=== PATIENT | female | born 1990 | race Caucasian/White ===

== ENCOUNTER 2021-09-12 10:52 | Emergency (ER) | payer SELFPAY ==
--- OUTSIDE RECORDS SUMMARY | 2021-09-12 10:55 | XMS REPORT | Continuity of Care Document ---
:1990 Author Organization [facility] t Address 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 2-05 ity of constip[place] [facility] Maternal Maternal Disease Active Unive rs varicella, varicella, 1-14 it y of non-immune non-immune 00:[place] [facility] Glucose Glucose Disease Active Univers tolerance tolerance 1-14 ity of test test 00:00: [place] abnormal abnormal Medica l Branch High risk High risk Disease Active Uni vers , , 1-08 it y of antepartum antepartum [place] [facility] Thyroid Thyroid Disease Active Univers disease disease 1-08 ity of during during 00:00: [place] , , 00 Me dical unspecifie unspecifie Br anch d d trimester trimester Nausea and Nausea and Disease Active U nivers vomiting vomiting 1-08 ity of during during 00:00: [place] 00 Medi fahad prior to prior to Branch 22 weeks 22 weeks gestation gestation Allergies, Adverse Reactions, Alerts Allergy Allergy Status Severity Reaction(s) Onset Inactive Treating Comm ents Source Name Type Date Date Clinician Adhesive Propensi Active Rash Univer s Tape ty to 10-22 ity of adverse 00:00: [place] reaction 00 Medical s Branch ADHESIVE DRUG Active Hives Univers TAPE 10-22 ity of 00:00: [place] 00 Medical Branch Social History Social Habit Start Date Stop Date Quantity Comments Source History of Cigarette Smoker Universi ty of tobacco use [facility] Exposure to Not sure University of SARS-CoV-2 [facility] (event) [place] Alcohol intake 2021-02-12 2021-02-12 0 /d University of 00:00:00 00:00:00 [facility] Tobacco use and 2015-04-29 2015-04-29 Never used Universit y of exposure 00:00:00 00:00:00 [facility] Tobacco Comment 2015-04-29 2015-04-29 pt states she Univer sity of 00:00:00 00:00:00 smokes 4-5 [facility] cig/day [place] Sex [birth year] Universit y of 00:00:00 00:00:00 [facility] Smoking Status Start Date Stop Date Source Current every day smoker 2015-04-29 00:00:00 Uni versity of [facility] Medications Ordered Filled Start Stop Current Ordering Indication Dosage Frequency Signature Comments Components Source Medication Medication Date Date Medication? Clinician (SIG) Name Name LORazepam 2020-04 No 1mg 1 mg, Univer s (ATIVAN) 0-25 -24 Oral, ity of tablet 1 mg 00:30: 23:30 ONCE, 1 [place] [facility] 02/12/21 at 1930, PIPER ketorolac 2020-04 No 30mg 30 mg, Unive rs (TORADOL) 0-25 10-24 Intramuscu ity of injection 00:30: 23:30 lar, ONCE, [place] 30 mg 00 :00 1 dose, On [facility] 02/12/21 at 1930, PIPER
Fa culty member approving Restricted medication : MIRNA WARE chlorhexidi 2020-04 Yes [id number] 15mL Swish and Univers ne 0.12 % 0-24 spit out ity of mouthwash 00:00: 15 mL 2 [place] 00 (two) Medical times Branch daily. methylPREDN 2020-04 Yes [id number] Take by Univers ISolone 0-24 mouth ity of (MEDROL, 00:00: SEE-INSTRU [place] as GILDARDO,) 4 mg 00 CTIONS. Medica l tablets follow Branch package directions acetaminoph 2020-04 Yes [id number] 1{tbl} Take 1 Un gonzalez en-codeine 0-24 tablet by ity of (TYLENOL-CO 00:00: mouth [place] DEINE #3) 00 every 4 Medical 300-30 mg (four) Branch tablet hours as needed for Pain (scale 7-10). Indication s: acute pain ondansetron 2020-04 Yes [id number] 4mg Take 1 Univers 4 mg 0-24 tablet by ity of disintegrat 00:00: mouth [place] ing tablet 00 every 8 Medica l (eight) Branch hours as needed for Nausea and Vomiting (N/V). chlorhexidi 2020-04 Yes [id number] 15mL Swish and Univers ne 0.12 % 0-24 spit out ity of mouthwash 00:00: 15 mL 2 [place] 00 (two) Medical times Branch daily. methylPREDN 2020-04 Yes [id number] Take by Univers ISolone 0-24 mouth ity of (MEDROL, 00:00: SEE-INSTRU [place] as GILDARDO,) 4 mg 00 CTIONS. Medica l tablets follow Branch package directions acetaminoph 2020-04 Yes [id number] 1{tbl} Take 1 Un gonzalez en-codeine 0-24 tablet by ity of (TYLENOL-CO 00:00: mouth [place] DEINE #3) 00 every 4 Medical 300-30 mg (four) Branch tablet hours as needed for Pain (scale 7-10). Indication s: acute pain ondansetron 2020-04 Yes [id number] 4mg Take 1 Univers 4 mg 0-24 tablet by ity of disintegrat 00:00: mouth [place] ing tablet 00 every 8 Medica l (eight) Branch hours as needed for Nausea and Vomiting (N/V). amoxicillin 2020-04 Yes [id number] 500mg Take 1 Univers 500 mg 0-24 capsule by ity of capsule 00:00: mouth 3 [place] 00 (three) Medical times Branch daily. ibuprofen 2020-04 Yes [id number] 800mg Take 1 U nivers 800 mg 0-24 tablet by ity of tablet 00:00: mouth [place] 00 every 8 Medical (eight) Branch hours as needed for Pain (scale 4-6). clindamycin 2020-04- No [id number] 300mg Take 2 Univers 150 mg 0-24 02-20 capsules ity of capsule 00:00: 04:59 by mouth 4 [place] as 00 :00 (four) Medical times Branch daily for 7 days. clindamycin 2020-04 No [id number] 300mg Take 2 Univers 150 mg 0-24 02-20 capsules ity of capsule 00:00: 04:59 by mouth 4 [place] as 00 :00 (four) Medical times Branch daily for 7 days. ciprofloxac Yes [id number] 250mg Take 1 Univers in HCl 250 4-23 tablet by ity of mg tablet 00:00: mouth 2 (two) Medical times Branch daily. ciprofloxac Yes [id number] 250mg Take 1 Univers in HCl 250 4-23 tablet by ity of mg tablet 00:00: mouth 2 (two) Medical times Branch daily. amoxicillin 2015-04 Yes 500mg Take 1 Uni vers 500 mg 2-23 tablet by ity of tablet 00:00: mouth 2 (two) Medical times Branch daily. amoxicillin 2015-04 Yes 500mg Take 1 Uni vers 500 mg 2-23 tablet by ity of tablet 00:00: mouth 2 (two) Medical times Branch daily. Immunizations Ordered Filled Immunization Date Status Comments [facility] e Immunization Name Name Rubella 2007-11-12 Completed University of 00:00:00 [facility] Rubella 2007-11-12 Completed University of 00:00:00 [facility] Influenza Virus 2007-05-23 Completed Universit y of Vaccine 00:00:00 [facility] Influenza Virus 2007-05-23 Completed Universit y of Vaccine 00:00:00 [facility] Td 2004-04-25 Completed University of 00:00:00 [facility] Td 2004-04-25 Completed University of 00:00:00 [facility] Vital Signs Vital Name Observation Time Observation Value Comments Source Systolic blood 2021-02-13 00:00:00 134 mm[Hg] Univer sity of pressure [place] [facility] Diastolic blood 2021-02-13 00:00:00 87 mm[Hg] Unive rsity of pressure [place] [facility] Heart rate 2021-02-13 00:00:00 63 /min Universi ty of [place] [facility] Respiratory rate 2021-02-13 00:00:00 18 /min Univ ersity of [place] [facility] Oxygen saturation in 2021-02-13 00:00:00 97 /min University of Arterial blood by [place] [facility] fahad Pulse oximetry Branch Body temperature 2021-02-12 23:17:00 36.5 [place] Univ ersity of [place] [facility] Body height 2021-02-12 23:17:00 160 cm Universi ty of [place] [facility] Body weight 2021-02-12 23:17:00 68.04 kg Universi ty [facility] [place] [facility] BMI 2021-02-12 23:17:00 26.57 kg/m2 [facility] ty [facility] [place] [facility] Systolic blood 2021-02-12 07:45:00 128 mm[Hg] Univer sity of pressure [place] [facility] Diastolic blood 2021-02-12 07:45:00 90 mm[Hg] Unive rsity of pressure [place] [facility] Heart rate 2021-02-12 07:45:00 68 /min Universi ty [facility] [place] [facility] Oxygen saturation in 2021-02-12 07:45:00 98 /min University of Arterial blood by [employer] fahad Pulse oximetry Branch Body temperature 2021-02-12 07:02:00 36.89 [place] Univ ersity of [place] [facility] Respiratory rate 2021-02-12 07:02:00 18 /min Univ ersity of [place] [facility] Body height 2021-02-12 07:02:00 160 cm [facility]i ty [facility] [place] [facility] Body weight 2021-02-12 07:02:00 68.04 kg [facility] [place] [facility] BMI 2021-02-12 07:02:00 26.57 kg/m2 [facility] [place] [facility] Procedures Procedure Date / Time Performed Performing Clinician [facility] e CONSENT/REFUSAL FOR 2021-02-12 06:52:01 Doctor Unassigned, No Un [facility] DIAGNOSIS AND Name Medical Branch TREATMENT Encounters Start End Encounter Admission Attending Care Care Encounter Source Date/Time Date/Time Type Type Clinicians Facility Department ID 2021-02-12 2021-02-12 Emergency X JEANIE [facility] ERT [id number] Univers 18:17:00 19:18:00 MIRNA ity [facility] 2021-02-12 2021-02-12 Emergency Jeanie [facility] [id number] Univers 18:17:00 19:18:00 Mirna Smith [id number] ity [facility] [id number] [facility] [id number] [address] 2021-02-12 2021-02-12 Emergency [facility] [id number] Univers 01:58:00 02:49:00 Alejo Smith [id number] i ty of [place] [id number] [facility] [id number] [address] 2021-02-12 2021-02-12 Emergency X [facility] ERT [id number] Univers 01:52:00 01:52:00 ity [facility] 2020-08-12 2020-08-12 Emergency X [facility] ERT [id number] Univers 16:50:00 16:50:00 ity [facility] Results This patient has no known results.
[2021-09-12 12:08] LABS: Absolute Lymphocytes (CBC) 1.6 K/uL (0.7-4.9); Hematocrit 40.5 % (36.0-45.0); RBC Red Blood Cell Count 4.49 M/uL (3.86-4.86)
[2021-09-12 12:28] LABS: Potassium 3.8 mmol/L (3.5-5.1)
--- NOTE | 2021-09-12 12:40 | ER ---
Nurse's Notes [facility] Name: Abida Casey Age: 31 yrs Sex: Female : 1990 Arrival Date: 09/12/2021 Time: 10:59 Bed 10 Private MD: Diagnosis: Unspecified lump in the right breast, lower outer quadrant Presentation: 09/12 11:25 Chief complaint: Patient states: R breast pain x 2 weeks. Pt states, "there is a lump ss and I can't even put a bra on.". Coronavirus screen: Client denies travel out of the [place] in the last 14 days. Ebola Screen: Patient denies exposure to infectious person. Patient denies travel to an Ebola-affected area in the 21 days before illness onset. Initial Sepsis Screen: Does the patient meet any 2 criteria? No. Patient's initial sepsis screen is negative. Does the patient have a suspected source of infection? No. Patient's initial sepsis screen is negative. Risk Assessment: Do you want to hurt yourself or someone else? Patient reports no desire to harm self or others. Onset of symptoms was August 29, 2021. 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 - Social history:: Smoking status: Patient reports the use of cigarette tobacco products, smokes one-half pack cigarettes per day, Reported history of juuling and/or vaping. Screenin:39 Abuse screen: Denies threats or abuse. Denies injuries from another. Nutritional ss screening: No deficits noted. Tuberculosis screening: Never had TB. Fall Risk None identified. Assessment: 12:39 General: Appears in no apparent distress. comfortable, Behavior is calm, cooperative, ss Denies fever, feeling ill, fatigue, chills. Pain: Complains of pain in right breast Pain at worst was 10 out of 10 on a pain scale. Quality of pain is described as tender. Neuro: Guerin Agitation-Sedation Scale (RASS): 0 - Alert and Calm Level of Consciousness is awake, alert, obeys commands, Oriented to person, place, time, situation. Cardiovascular: Capillary refill < 3 seconds is brisk in bilateral fingers Patient's skin is warm and dry. Respiratory: Airway is patent Respiratory effort is even, unlabored, Respiratory pattern is regular, symmetrical. GI: Patient currently denies diarrhea, nausea, vomiting. EENT: Oral mucosa is moist. Derm: Skin is intact, is healthy with good turgor, Skin is dry, Skin is pink, warm \\T\\ dry. normal. Vital Signs: 11:25 Weight 68.04 kg; Height 5 ft. 3 in. (160.02 cm); Pain 9/10; ss 11:27 BP 127 / 63; Pulse 84; Resp 16; Temp 98.1(TE); Pulse Ox 100% on R/A; ss 11:25 Body Mass Index 26.57 (68.04 kg, 160.02 cm) ED Course: 10:59 Patient arrived in ED. mr 10:59 Shy Ceballos, DE[facility] 7 10:59 Dale Hobson MD is Attending Physician. jh7 11:25 Triage completed. ss 11:25 Arm band placed on left wrist. ss 11:50 Miri Roach, MAURICIO is Primary Nurse. ss 12:01 Placed in gown. Bed in low position. Call light in reach. Side rails up X 1. Door mb7 closed. Noise minimized. Warm blanket given. 12:01 Inserted saline lock: 20 gauge in left antecubital area, using aseptic technique. Blood mb7 collected. 12:02 BMP Sent. mb7 12:02 CBC with Diff Sent. mb7 12:10 BREAST/AXILLA, LIMITED In Process Unspecified. EDMS 12:35 Butch Kan MD is Referral Physician. jh7 12:39 No provider procedures requiring assistance completed. ss 13:10 IV discontinued, intact, bleeding controlled, No redness/swelling at site. Pressure ss dressing applied. Administered Medications: 13:10 Drug: [place] (HYDROcodone-acetaminophen) (7.5 mg-325 mg) 1 tabs Route: PO; ss 13:10 Follow up: Response: Medication administered at discharge. ss Medication: 12:39 VIS not applicable for this client. ss Outcome: 12:40 Discharge ordered by MD. parker 13:10 Discharged to home ambulatory. ss 13:10 Condition: good 13:10 Discharge instructions given to patient, significant other, Instructed on discharge instructions, follow up and referral plans. medication usage, Demonstrated understanding of instructions, follow-up care, medications, Prescriptions given X 1. 13:11 Patient left the ED. ss Signatures: Dispatcher [employer] AMAYA Wetzel Flakita Miri Dawson RN RN Flakita Villalba 7 Shy Ceballos, BRICK CARRIER DEBORA sousa7 Corrections: (The following items were deleted from the chart) 11:26 11:25 PMHx: None; ss ss 12:42 12:39 Patient did not have IV access during this emergency room visit. ss ss
--- NOTE | 2021-09-12 12:40 | EDPHYS ---
Physician Documentation [facility] Name: Abida Casey Age: 31 yrs Sex: Female : 1990 Arrival Date: 09/12/2021 Time: 10:59 Bed 10 Private MD: ED Physician Dale Hobson HPI: 09/12 11:30 This 31 yrs old Female presents to ER via Ambulatory with complaints of Breast Problem. jh7 11:30 Onset: The symptoms/episode began/occurred 2 week(s) ago. Associated signs and jh7 symptoms: Pertinent positives: Breast Lump, Pertinent negatives: cough, fever, headache, shortness of breath, vomiting. . 11:30 31-year-old female presents with a lump in her right breast starting 2 weeks ago. She jh7 has a family history of breast cancer. She states that it is tender, and it hurts when she wears a bra. Denies fever, redness, or drainage. No other medical problems.. 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 - Social history:: Smoking status: Patient reports the use of cigarette tobacco products, smokes one-half pack cigarettes per day, Reported history of juuling and/or vaping. ROS: 11:30 Constitutional: Negative for fever, chills, and weight loss, ENT: Negative for injury, jh7 pain, and discharge, Neck: Negative for injury, pain, and swelling, Respiratory: Negative for shortness of breath, cough, wheezing, and pleuritic chest pain, Abdomen/GI: Negative for abdominal pain, nausea, vomiting, diarrhea, and constipation, Back: Negative for injury and pain, Skin: Negative for injury, rash, and discoloration, Neuro: Negative for headache, weakness, numbness, tingling, and seizure. 11:30 Cardiovascular: Positive for R breast pain, Negative for chest pain, edema, orthopnea, palpitations. 11:30 All other systems are negative. Exam: 11:30 Constitutional: This is a well developed, well nourished patient who is awake, alert, jh7 and in no acute distress. Cardiovascular: Regular rate and rhythm with a normal S1 and S2. No gallops, murmurs, or rubs. Normal PMI, no JVD. No pulse deficits. Respiratory: Lungs have equal breath sounds bilaterally, clear to auscultation and percussion. No rales, rhonchi or wheezes noted. No increased work of breathing, no retractions or nasal flaring. Abdomen/GI: Soft, non-tender, with normal bowel sounds. No distension or tympany. No guarding or rebound. No evidence of tenderness throughout. Skin: Warm, dry with normal turgor. Normal color with no rashes, no lesions, and no evidence of cellulitis. Neuro: Awake and alert, GCS 15, oriented to person, place, time, and situation. Cranial nerves II-XII grossly intact. Motor strength 5/5 in all extremities. Sensory grossly intact. Cerebellar exam normal. Normal gait. 11:30 Chest/axilla: Breasts: mass(es), that is moderate-sized, in the right breast, that is tender, that is fixed, 2 cm, jagged, hard, fixed mass on the R lower aspect of the R breast. TTP, no erythema or swelling noted. Vital Signs: 11:25 Weight 68.04 kg; Height 5 ft. 3 in. (160.02 cm); Pain 9/10; ss 11:27 BP 127 / 63; Pulse 84; Resp 16; Temp 98.1(TE); Pulse Ox 100% on R/A; ss 11:25 Body Mass Index 26.57 (68.04 kg, 160.02 cm) MDM: 11:28 Patient medically screened. [facility] 12:50 Data reviewed: vital signs, nurses notes, radiologic studies, ultrasound. Data [facility] interpreted: Pulse oximetry: is 100 %. Interpretation: normal. Counseling: I had a detailed discussion with the patient and/or guardian regarding: the historical points, exam findings, and any diagnostic results supporting the discharge/admit diagnosis, the need for outpatient follow up, an OB/Gyne specialist, for Mammogram/breast biopsy. ED course: The patient remained stable throughout the ER visit. Spoke to radiology who stated that the mass is likely a fibroadenoma, but cannot rule out neoplasm. The patient has a positive family history for breast cancer, so breast biopsy is highly recommended. Advised the patient to follow-up with her REPRODUCTIVE ENDOCRINOLOGIST for mammogram and breast biopsy. If the patient has any other concerns, she may return to the ER for further evaluation. The patient understood the plan of care.. 09/12 11:41 Order name: CBC with Diff; Complete Time: 12:16 [facility] 09/12 11:41 Order name: BMP; Complete Time: 12:31 [facility] 09/12 11:49 Order name: IV Saline Lock; Complete Time: 12:02 [facility] 09/12 12:10 Order name: BREAST/AXILLA, LIMITED EDMS Administered Medications: 13:10 Drug: [place] (HYDROcodone-acetaminophen) (7.5 mg-325 mg) 1 tabs Route: PO; 13:10 Follow up: Response: Medication administered at discharge. Disposition: 18:14 Co-signature as Attending Physician, Dale Hobson MD. rn Disposition Summary: 09/12/21 12:40 Discharge Ordered Location: Home [facility] Problem: new [facility] Symptoms: are unchanged [facility] Condition: Stable [facility] Diagnosis - Unspecified lump in the right breast, lower outer quadrant [facility] Followup: [facility] - With: Butch Kan MD - When: Tomorrow - Reason: Recheck today's complaints Discharge Instructions: - Discharge Summary Sheet [facility] - Breast Biopsy [facility] - Breast Cancer, Female [facility] - Fibroadenoma [facility] Forms: - Medication Reconciliation Form [facility] - Thank You Letter [facility] Prescriptions: - Tramadol 50 mg Oral Tablet - take 1 tablet by ORAL route every 8 hours as needed; 12 tablet; Refills: 0, [facility] Product Selection Permitted Signatures: Dispatcher [employer] EDMS Dale Hobson MD MD rn Smirch, Shelby, RN RN ss Breneman, Mary 7 Shy Ceballos FNP FNP [facility] Corrections: (The following items were deleted from the chart) 11:26 11:25 PMHx: None; ss ss 12:10 11:41 Extrmty Nonvasular Limited+US.RAD.BRZ ordered. EDMS EDMS
[2021-09-12] MEDS ORDERED: HYDROCODONE/APAP 7.5/325 MG TAB ONE (13:06)
[2021-09-12 13:22] VITALS: BP 127/63; TEMP 98.1; O2SAT 100
== END 2021-09-12 13:11 | disposition home or self-care (01) ==
LOC: ER 10:52
DX: N63.13 Unspecified lump in the right breast, lower outer quadrant (principal); F17.210 Nicotine dependence, cigarettes, uncomplicated; Z80.3 Family history of malignant neoplasm of breast
CPT/HCPCS: 36415; 76642; 80048; 85025; 99284

== ENCOUNTER 2022-11-07 13:48 | Emergency (ER) | payer SELFPAY ==
--- OUTSIDE RECORDS SUMMARY | 2022-11-07 13:52 | XMS REPORT | Continuity of Care Document ---
:1990 Author Organization [facility] t Address [address] [place] [address] Care Team Providers Name Role Phone PCP, PATIENT DOES NOT HAVE A Primary Care Physician Beckiea MIRNA Dick Attending Clinician Unavailable Mirna Ware MD Attending Clinician Alejo Crespo DO Attending Clinician Payers Payer Name Policy Type Policy Number Effective Date Expiration Date S ource MEDICAID OF [place] [id number] 2015 00:00:00 Problems Condition Condition Condition Status [...] tolerance 1-14 ity of test test 00:00: [place] abnormal abnormal [address] [place], [place] [address]a l [place] High risk High risk Disease Active Uni vers , , 1-08 it y of ante[place] [facility] Thyroid Thyroid Disease Active Univers disease disease 1-08 ity of during during 00:00: [place] , , 00 Me dical unspecifie unspecifie Br anch d d trimester trimester Nausea and Nausea and Disease Active U nivers vomiting vomiting 1-08 ity of during during 00:00: [place] 00 Medi fahad prior to prior to Branch 22 weeks 22 weeks gestation gestation Allergies, Adverse Reactions, Alerts Allergy Allergy Status Severity Reaction(s) Onset Inactive Treating Comm ents Source Name Type Date Date Clinician Adhesive Propensi Active Rash Univer s Tape ty to 7 ity of adverse 00:00: [place] reaction 00 [facility] s [place] ADHESIVE DRUG Active Hives Univers TAPE 10-22 ity of 00:00: [place] 00 [facility] Social History Social Habit Start Date Stop Date Quantity Comments Source Exposure to Not sure University of SARS-CoV-2 [facility] (event) [place] History of Cigarette Smoker Universi ty of tobacco use [facility] Alcohol intake 2021-02-12 2021-02-12 0 /d University of 00:00:00 00:00:00 [facility] Tobacco use and 2015-04-29 2015-04-29 Never used Universit y of exposure 00:00:00 00:00:00 [facility] Tobacco Comment 2015-04-29 2015-04-29 pt states she Univer sity of 00:00:00 00:00:00 smokes 4-5 [facility] cig/day Dodson Sex Ass[birth year] At [birth year] Universit y of 00:00:00 00:00:00 [facility] Smoking Status Start Date Stop Date Source Current every day smoker 2015-04-29 00:00:00 Uni versity of [facility] Medications Ordered Filled Start Stop Current Ordering Indication Dosage Frequency Signature Comments Components Source Medication Medication Date Date Medication? Clinician (SIG) Name Name LORazepam 2020-04 No 1mg 1 mg, Univer s (ATIVAN) 0-25 10-24 Oral, ity of tablet 1 mg 00:30: 23:30 [place]CE[place] 1 [place] dose, On [facility] 02/12/21 at 1930, PIPER ketorolac 2020-04 No 30mg 30 mg, Unive rs (TORADOL) 0-25 10-24 Intramuscu ity of injection 00:30: 23:30 lar, ONCE, [place] 30 mg 00 :00 1 dose, On [facility] 02/12/21 at 1930, PIPER
Fa culty member approving Restricted medication : MIRNA WARE chlorhexidi 2020-04 Yes [id number] 15mL Swish and Univers ne 0.12 % 0-24 spit out ity of mouthwash 00:00: 15 mL 2 [place] 00 (two) Medical times Branch daily. methylPREDN 2020-04 Yes [id number] Take by Univers ISolone 0-24 mouth ity [...] Indication s: acute pain ondansetron 2020-04 Yes [id number] 4mg Take 1 Univers 4 mg 0-24 tablet by ity of disintegrat 00:00: mouth [place] ing tablet 00 every 8 Medica l (eight) Branch hours as needed for Nausea and Vomiting (N/V). chlorhexidi 2020-04 Yes [id number] 15mL Swish and Univers ne 0.12 % 0-24 spit out ity of mouthwash 00:00: 15 mL 2 [place] 00 (two) Medical times Branch daily. methylPREDN 2020-04 Yes [id number] Take by Univers ISolone 0-24 mouth ity [...] Indication s: acute pain ondansetron 2020-04 Yes [id number] 4mg Take 1 Univers 4 mg 0-24 tablet by ity of disintegrat 00:00: mouth [place] ing tablet 00 every 8 Medica l (eight) Branch hours as needed for Nausea and Vomiting (N/V). amoxicillin 2020-04 Yes [id number] 500mg Take 1 Univers 500 mg 0-24 capsule by ity of capsule 00:00: mouth 3 [place] 00 (three) Medical times Branch daily. ibuprofen 2020-04 Yes [id number] 800mg Take 1 U nivers 800 mg 0-24 tablet by ity of tablet 00:00: mouth [place] 00 every 8 Medical (eight) Branch hours as needed for Pain (scale 4-6). clindamycin 2020-04 No [id number] 300mg Take 2 Univers 150 mg 0-24 02-20 capsules ity of capsule 00:00: 04:59 by mouth 4 [place] as 00 :00 (four) Medical times Branch daily for 7 days. clindamycin 2020-04 No [id number] 300mg Take 2 Univers 150 mg 0-24 02-20 capsules ity of capsule 00:00: 04:59 by mouth 4 [place] 00 :00 (four) Medical times Branch daily for 7 days. ciprofloxac Yes [id number] 250mg Take 1 Univers in HCl 250 4-23 tablet by ity of mg tablet 00:00: mouth 2 (two) Medical times Branch daily. ciprofloxac Yes [id number] 250mg Take 1 Univers in HCl 250 [...] Immunizations Ordered Filled Immunization Date Status Comments [facility] e Immunization Name Name Rubella 2007-11-12 Completed University of 00:00:00 [facility] Rubella 2007-11-12 Completed University of 00:00:00 [facility] Influenza Virus 2007-05-23 Completed Universit y of Vaccine 00:00:00 [facility] Influenza Virus 2007-05-23 Completed Universit y of Vaccine 00:00:00 [facility] Td 2004-04-25 Completed University of 00:00:00 [facility] Branch Td 2004-04-25 Completed University 00:00:00 [facility] Vital Signs Vital Name Observation Time Observation Value Comments Source Systolic blood 2021-02-13 00:00:00 134 mm[Hg] Univer sity of pressure [place] [facility] Diastolic blood 2021-02-13 00:00:00 87 mm[Hg] Unive rsity of pressure [place] [facility] Heart rate 2021-02-13 00:00:00 63 /min Universi ty of [place] [facility] Respiratory rate 2021-02-13 00:00:00 18 /min Univ ersity of [place] [facility] Oxygen saturation in 2021-02-13 00:00:00 97 /min University of Arterial blood by [place] [employer] Pulse oximetry Branch Body temperature 2021-02-12 23:17:00 36.5 Blanquita Univ ersity of [place] [facility] Body height 2021-02-12 23:17:00 160 cm Universi ty of [place] [facility] Body weight 2021-02-12 23:17:00 68.04 kg Universi ty [facility] [place] [facility] BMI 2021-02-12 23:17:00 26.57 kg/m2 [facility]i ty [facility] [place] [facility] Systolic blood 2021-02-12 07:45:00 128 mm[Hg] Univer sity of pressure [place] [facility] Diastolic blood 2021-02-12 07:45:00 90 mm[Hg] Unive rsity of pressure [place] [facility] Heart rate 2021-02-12 07:45:00 68 /min Universi ty of [place] [facility] Oxygen saturation in 2021-02-12 07:45:00 98 /min University of Arterial blood by [place] [employer] Pulse oximetry Branch Body temperature 2021-02-12 07:02:00 36.89 Blan[place]ita Univ ersity of [place] [facility] Respiratory rate 2021-02-12 07:02:00 18 /min Univ ersity of [place] [facility] Body height 2021-02-12 07:02:00 160 cm Universi ty [facility] [place] [facility] Body weight 2021-02-12 07:02:00 68.04 kg Universi ty [facility] [place] [facility] BMI 2021-02-12 07:02:00 26.57 kg/m2 [facility] [place] [facility] Procedures Procedure Date / Time Performed Performing Clinician [facility] e CONSENT/REFUSAL FOR 2021-02-12 06:52:01 Doctor Unassigned, No Un [facility] DIAGNOSIS AND Name Medical Branch TREATMENT Encounters Start End Encounter Admission Attending Care Care Encounter Source Date/Time Date/Time Type Type Clinicians Facility Department ID 2021-02-12 2021-02-12 Emergency X JEANIE RUST ERT [id number] Univers 18:17:00 19:18:00 [place] ity [facility] 2021-02-12 2021-02-12 [facility] [id number] Univers 18:17:00 19:18:00 Mirna Smith [id number] ity of [place] [id number] [facility] [id number] [address] 2021-02-12 2021-02-12 Emergency , RUST [id number] Univers 01:58:00 02:49:00 Alejo Smith [id number] i ty of [place] [id number] [facility] [id number] [place] [address] Branch 2021-02-12 2021-02-12 Emergency X RUST ERT [id number] Univers [facility]-08[facility]12 2020-08-12 Emergency X RUST ERT [id number] Univers 16:50:00 16:50:00 [facility] Results This patient has no known results.
[2022-11-07] MEDS ORDERED: NA CHLORIDE 0.9% 1,000 ML ONE (14:26)
[2022-11-07] MEDS ORDERED: ONDANSETRON 4 MG/2 ML VIAL ONE (14:26)
[2022-11-07] MEDS ORDERED: FAMOTIDINE 20 MG/2 ML VIAL IV ONE (14:26)
[2022-11-07 14:35] LABS: Specific Gravity > 1.030 (1.005-1.030); Urine Bacteria <20 /HPF (<20); Urine Bilirubin 1+ (Negative); Urine Blood Negative (Negative); Urine Clarity Extremely Turbid (Clear); Urine Color Yellow (Yellow); Urine Crystals Unidentified Few /HPF (None Seen); Urine Glucose NEGATIVE (Negative); Urine Mucus 2+ /HPF (None Seen); Urine Protein 1+ (Negative); Urine RBC <5 /HPF (None Seen); Urine Urobilinogen 1+ (Normal); Urine pH 5.5 (5.0-7.0)
[2022-11-07 14:37] LABS: Specific Gravity > 1.030 (1.005-1.030)
[2022-11-07 14:44] LABS: Absolute Lymphocytes (CBC) 2.1 K/uL (0.7-4.9); Hematocrit 46.5 % (36.0-45.0); Lymphocytes % 24.9 % (15.3-44.8); MCV 91.9 fL (80-100); MPV 9.9 fL (7.6-11.3); RBC Red Blood Cell Count 5.05 M/uL (3.86-4.86)
[2022-11-07 15:01] LABS: Albumin 4.2 g/dL (3.4-5.0); Bilirubin Total 0.8 mg/dL (0.2-1.0); Potassium 3.4 mEq/L (3.5-5.1); Protein, Total 7.4 g/dL (6.4-8.2)
--- NOTE | 2022-11-07 15:17 | RAD REPORT ---
EXAM DESCRIPTION: US - Abdomen Exam Limited - 11/07/2022 2:53 pm CLINICAL HISTORY: Abdominal pain. COMPARISON: None. FINDINGS: The gallbladder wall is not thickened. A gallstone is not seen. The biliary tree is normal caliber. IMPRESSION: Unremarkable gallbladder ultrasound.
--- NOTE | 2022-11-07 15:27 | RAD REPORT ---
EXAM DESCRIPTION: CT - Abdomen Pelvis W Contrast - 11/07/2022 3:01 pm CLINICAL HISTORY: Abdominal pain COMPARISON: 2014 TECHNIQUE: Computed axial tomography of the abdomen pelvis was obtained. 100 cc Isovue-300 was admin istered intravenously. Oral contrast was not requested which limits evaluation of bowel and appendix All CT scans are performed using dose optimization technique as appropriate and may include automated exposure control or mA/KV adjustment according to patient size. FINDINGS: The liver, spleen, pancreas, adrenal and kidneys appear unremarkable. There is no evidence of diverticulitis. Retroverted uterus. No adnexal mass. Prominent periuterine veins IMPRESSION: Prominent periuterine veins is nonspecific but can be seen with pelvic venous congestion syndrome
--- NOTE | 2022-11-07 15:31 | RAD REPORT ---
EXAM DESCRIPTION: Shashi Conway (2 Views)11/07/2022 3:04 pm CLINICAL HISTORY: Abdominal pain COMPARISON: None FINDINGS: The lungs appear clear of acute infiltrate. The heart is normal size IMPRESSION: No acute abnormalities displayed
--- NOTE | 2022-11-07 15:44 | EDPHYS ---
Physician Documentation [facility] Name: Abida Casey Age: 32 yrs Sex: Female : 1990 Arrival Date: 11/07/2022 Time: 13:48 Bed 6 Private MD: ED Physician Dale Hobson HPI: 11/07 15:39 This 32 yrs old Female presents to ER via Ambulatory with complaints of Chest Pain. rn 15:39 The patient or guardian reports chest pain that is located primarily in the right rn lateral posterior chest. The pain does not radiate. Associated signs and symptoms: Pertinent positives: dizziness, nausea, vomiting, Pertinent negatives: headache, lower extremity swelling, near syncope, palpitations, syncope. The chest pain is described as sharp, stabbing. Duration: The patient or guardian reports multiple episodes, that are intermittent. 15:40 Modifying factors: The symptoms are alleviated by nothing. the symptoms are aggravated rn by deep breath, eating. Severity of pain: At its worst the pain was moderate in the emergency department the pain has improved. The patient has not experienced similar symptoms in the past. The patient has not recently seen a physician. + smoker, + right posterior chest/flank pain, assoc with nausea/vomiting, no trauma, no fever, no sob. No hx of dvt/PE. No hemoptysis. + constipation. NO known gallbladder problems. No hx of gallstones. No hx of kidney stones.. Historical: - Allergies: 14:02 No Known Allergies; ph - PMHx: 14:02 None; ph - PSHx: 14:02 section; ph - Immunization history:: Adult Immunizations unknown. - Social history:: Smoking status: Patient reports the use of cigarette tobacco products, smokes one-half pack cigarettes per day. - Family history:: not pertinent. - Hospitalizations: : No recent hospitalization is reported. ROS: 15:40 Constitutional: Negative for fever, chills, and weight loss, Eyes: Negative for injury, rn pain, redness, and discharge, Cardiovascular: Negative for palpitations, and edema, Respiratory: Negative for shortness of breath, cough, wheezing Abdomen/GI: Negative for abdominal pain, diarrhea MS/Extremity: Negative for injury and deformity, Skin: Negative for injury, rash, and discoloration, Neuro: Negative for headache, weakness, numbness, tingling, and seizure. Exam: 15:40 Constitutional: This is a well developed, well nourished patient who is awake, alert, rn and in no acute distress. Head/Face: Normocephalic, atraumatic. Cardiovascular: Regular rate and rhythm. No pulse deficits. Respiratory: No increased work of breathing, no retractions or nasal flaring. Abdomen/GI: Soft, non-tender, no RUQ tenderness, neg corona Skin: Warm, dry MS/ Extremity: Pulses equal, no cyanosis. Neurovascular intact. Full, normal range of motion. Equal circumference. Neuro: Awake and alert, GCS 15 Vital Signs: 14:00 BP 132 / 93; Pulse 107; Resp 18; Temp 97.3; Pulse Ox 100% on R/A; Weight 58.51 kg; ph Height 5 ft. 2 in. ; Pain 10/10; 14:38 BP 131 / 93; Pulse 68; Resp 16; Pulse Ox 100% ; bp 16:02 BP 106 / 69; Pulse 71; Resp 16; Pulse Ox 100% ; bp 14:00 Body Mass Index 23.59 (58.51 kg, 157.48 cm) ph 14:00 Pain Scale: Adult ph MDM: 13:58 Patient medically screened. rn 15:40 Differential diagnosis: acute pericarditis, anxiety, chest wall pain, cholecystitis, rn Cholelithiasis costochondritis, esophagitis, gastritis, gastroesophageal reflux disease (GERD), pancreatitis, pericarditis, pleurisy, pneumonia, pneumothorax. Data reviewed: vital signs, nurses notes, lab test result(s), EKG, radiologic studies, CT scan, plain films, ultrasound, and as a result, I will discharge patient. Counseling: I had a detailed discussion with the patient and/or guardian regarding: the historical points, exam findings, and any diagnostic results supporting the discharge/admit diagnosis, lab results, radiology results, the need for outpatient follow up, to return to the emergency department if symptoms worsen or persist or if there are any questions or concerns that arise at home. Response to treatment: the patient's symptoms have markedly improved after treatment, and as a result, I will discharge patient. Special discussion: Based on the patient's history, exam, and Dx evaluation, there is no indication for emergent intervention or inpatient Tx. It is understood by the patient/guardian that if the Sx's persist or worsen they need to return immediately for re-evaluation. I discussed with the patient/guardian in detail that at this point there is no indication for admission to the hospital. It is understood, however, that if the symptoms persist or worsen the patient needs to return immediately for re-evaluation. Based on the history and exam findings, there is no indication for further emergent testing or inpatient evaluation. I discussed with the patient/guardian the need to see the disability counselor for further evaluation of the symptoms. I discussed with the patient/guardian the need to see the primary care provider for further evaluation of the symptoms. ED course: No acute findings in CXR/CT abdomen/Ultrasound/labs/urine. Told to stop smoking as could be pleurisy, will prescribe antacids, and to take anti-inflammatory meds with strict return precautions given/understood. Told also could be poorly functioning gallbladder since worse with food. . 11/07 14:08 Order name: CBC with Diff; Complete Time: 15:06 11/07 14:08 Order name: CMP; Complete Time: 15: 11/07 14:08 Order name: Lipase; Complete Time: 15: 11/07 14:08 Order name: Test, Urine; Complete Time: 15: 11/07 14:08 Order name: Urinalysis w/ reflexes; Complete Time: 15:06 11/07 14:08 Order name: CT Abd/Pelvis - IV Contrast Only; Complete Time: 15:33 11/07 14:08 Order name: US Abdomen Limited; Complete Time: 15:33 11/07 14:08 Order name: XRAY Chest Pa And Lat (2 Views); Complete Time: 15:33 11/07 14:08 Order name: IV Saline Lock; Complete Time: 14:31 rn 11/07 14:08 Order name: Labs collected and sent; Complete Time: 14:32 rn Administered Medications: 14:32 Drug: NS 0.9% IV 1000 ml Route: IV; Rate: 1 bolus; Site: right antecubital; bp 16:04 Follow up: IV Status: Completed infusion; IV Intake: 1000ml bp 14:32 Drug: Famotidine IVP 20 mg Route: IVP; Site: right antecubital; bp 16:04 Follow up: Response: No adverse reaction bp 14:32 Drug: Ondansetron IVP 4 mg Route: IVP; Site: right antecubital; bp 16:04 Follow up: Response: No adverse reaction bp Disposition Summary: 11/07/22 15:44 Discharge Ordered Location: Home rn Problem: new rn Symptoms: have improved rn Condition: Stable rn Diagnosis - Chest pain, unspecified rn Followup: rn - With: Private Physician - When: As needed - Reason: Recheck today's complaints, Re-evaluation by your physician Discharge Instructions: - Discharge Summary Sheet rn - Nonspecific Chest Pain, Adult rn - Pain Without a Known Cause rn - Steps to Quit Smoking rn Forms: - Medication Reconciliation Form rn - Thank You Letter rn - Antibiotic government affairs fellow - Prescription Opioid Use rn - Patient Portal Instructions rn Prescriptions: - ondansetron 4 mg Oral Tablet,disintegrating - take 1 tablet by ORAL route every 8 hours As needed; 15 tablet; Refills: 0, rn Product Selection Permitted - Protonix 40 mg Oral Tablet - take 1 tablet by ORAL route once daily; 30 tablet; Refills: 0, Product rn Selection Permitted Signatures: Dispatcher [employer] Dale Lpoez MD MD rn Hall, Patricia, RN RN Sylvain Renteria RN RN bp
--- NOTE | 2022-11-07 15:44 | ER ---
Nurse's Notes [facility] Name: Abida Casey Age: 32 yrs Sex: Female : 1990 Arrival Date: 11/07/2022 Time: 13:48 Bed 6 Private MD: Diagnosis: Chest pain, unspecified Presentation: 11/07 14:00 Chief complaint: Patient states: RUQ pain, pain below R shoulder blade radiating up ph back, N/V and constipation x 4 days. Coronavirus screen: Vaccine status: Patient reports being unvaccinated. Ebola Screen: No symptoms or risks identified at this time. Initial Sepsis Screen: Does the patient meet any 2 criteria? No. Patient's initial sepsis screen is negative. Does the patient have a suspected source of infection? No. Patient's initial sepsis screen is negative. Risk Assessment: Do you want to hurt yourself or someone else? Patient reports no desire to harm self or others. Onset of symptoms was November 07, 2022. 14:00 Method Of Arrival: Ambulatory ph 14:00 Acuity: JOELLE 3 ph Triage Assessment: 14:05 General: Appears uncomfortable, Behavior is cooperative, appropriate for age, anxious. bp Pain: Complains of pain in chest. EENT: No deficits noted. Neuro: No deficits noted. Cardiovascular: Reports chest pain. Respiratory: No deficits noted. GI: Reports nausea. : No signs and/or symptoms were reported regarding the genitourinary system. Derm: No deficits noted. Musculoskeletal: No deficits noted. Historical: - Allergies: 14:02 No Known Allergies; ph - PMHx: 14:02 None; ph - PSHx: 14:02 section; ph - Immunization history:: Adult Immunizations unknown. - Social history:: Smoking status: Patient reports the use of cigarette tobacco products, smokes one-half pack cigarettes per day. - Family history:: not pertinent. - Hospitalizations: : No recent hospitalization is reported. Screenin:39 [facility] ED Fall Risk Assessment (Adult) History of falling in the last 3 months, bp including since admission No falls in past 3 months (0 pts). Abuse screen: Denies threats or abuse. Denies injuries from another. Nutritional screening: No deficits noted. Tuberculosis screening: No symptoms or risk factors identified. Assessment: 14:05 General: SEE TRIAGE NOTE. bp 16:02 Reassessment: DC HOME AMBULATORY. bp Vital Signs: 14:00 BP 132 / 93; Pulse 107; Resp 18; Temp 97.3; Pulse Ox 100% on R/A; Weight 58.51 kg; ph Height 5 ft. 2 in. ; Pain 10/10; 14:38 BP 131 / 93; Pulse 68; Resp 16; Pulse Ox 100% ; bp 16:02 BP 106 / 69; Pulse 71; Resp 16; Pulse Ox 100% ; bp 14:00 Body Mass Index 23.59 (58.51 kg, 157.48 cm) ph 14:00 Pain Scale: Adult ph ED Course: 13:55 Patient arrived in ED. mg5 13:58 Dale Hobson MD is Attending Physician. rn 14:01 Triage completed. ph 14:02 Arm band placed on Patient placed in an exam room, on a stretcher. ph 14:11 Sylvain Alfonso, RN is Primary Nurse. bp 14:32 Inserted saline lock: 20 gauge in right antecubital area, using aseptic technique. bp Blood collected. 14:39 Patient has correct armband on for positive identification. Bed in low position. Call bp light in reach. Side rails up X2. Client placed on continuous cardiac and pulse oximetry monitoring. NIBP monitoring applied. 14:55 US Abdomen Limited In Process Unspecified. EDMS 15:02 CT Abd/Pelvis - IV Contrast Only In Process Unspecified. EDMS 15:05 XRAY Chest Pa And Lat (2 Views) In Process Unspecified. EDMS 16:02 No provider procedures requiring assistance completed. IV discontinued, intact, bp bleeding controlled, No redness/swelling at site. Pressure dressing applied. Patient maintains SpO2 saturation greater than 95% on room air. Administered Medications: 14:32 Drug: NS 0.9% IV 1000 ml Route: IV; Rate: 1 bolus; Site: right antecubital; bp 16:04 Follow up: IV Status: Completed infusion; IV Intake: 1000ml bp 14:32 Drug: Famotidine IVP 20 mg Route: IVP; Site: right antecubital; bp 16:04 Follow up: Response: No adverse reaction bp 14:32 Drug: Ondansetron IVP 4 mg Route: IVP; Site: right antecubital; bp 16:04 Follow up: Response: No adverse reaction bp Intake: 16:04 IV: 1000ml; Total: 1000ml. bp Outcome: 15:44 Discharge ordered by . rn 16:02 Discharged to home ambulatory. bp 16:02 Condition: stable 16:02 Discharge instructions given to patient, Instructed on discharge instructions, follow up and referral plans. medication usage, Demonstrated understanding of instructions, follow-up care, medications, Prescriptions given X 2. 16:04 Patient left the ED. bp Signatures: Dispatcher [employer] EDMS Dale Hobson MD MD rn Hall, Patricia, RN RN Sylvain Alfonso, RN RN Shamika Huertas mg5
[2022-11-07 16:33] VITALS: TEMP 97.3; O2SAT 100
[2022-11-07 16:44] VITALS: BP 106/69
== END 2022-11-07 16:04 | disposition home or self-care (01) ==
LOC: ER 13:48
DX: R07.89 Other chest pain (principal)
CPT/HCPCS: 36415; 71046; 74177; 76705; 80053; 81001; 81025; 83690; 85025; 96361; 96374; 96375; 99285; J2405; J7030; Q9967

== ENCOUNTER 2023-03-06 15:59 | Emergency (ER) | payer SELFPAY ==
--- OUTSIDE RECORDS SUMMARY | 2023-03-06 16:02 | XMS REPORT | Continuity of Care Document ---
:1990 Author Organization [facility] t Address [address] [place] [address] Care Team Providers Name Role Phone PCP, PATIENT DOES NOT HAVE A Primary Care Physician Beckiea MIRNA Dick Attending Clinician Unavailable Mirna Ware MD Attending Clinician Alejo Crespo DO Attending Clinician Payers Payer Name Policy Type Policy Number Effective Date Expiration Date S ource [place]ICAID [place] [id number] 2015 00:00:00 Problems Condition Condition Condition Status [...] tolerance 1-14 ity of test test 00:00: [place] abnormal abnormal [address] [place], [place] [id number] l [place] High risk High risk Disease Active Uni vers , , 1-08 it y of antepartum [place] [facility] Thyroid Thyroid Disease Active Univers disease disease 1-08 ity of during during 00:00: [place] , , 00 Me dical unspecifie unspecifie Br anch d d trimester trimester Nausea and Nausea and Disease Active U nivers vomiting vomiting 1-08 ity of during during 00:00: [place] 00 Medi fahad prior to prior to Branch 22 weeks 22 weeks gestation gestation Allergies, Adverse Reactions, Alerts Allergy Allergy Status Severity Reaction(s) Onset Inactive Treating Comm ents Source Name Type Date Date Clinician Adhesive Propensi Active Rash Univer s Tape ty to 7 ity of adverse 00:00: [place] reaction 00 [facility] [place] ADHESIVE DRUG Active Hives Univers TAPE 10-22 ity of 00:00: [place] 00 [facility] Social History Social Habit Start Date Stop Date Quantity Comments Source Exposure to Not sure University of SARS-CoV-2 [facility] (event) [place] History of Cigarette Smoker Universi ty of tobacco use [facility] [place] [facility] Alcohol intake 2021-02-12 2021-02-12 0 /d University of 00:00:00 00:00:00 [facility] [place] [facility] Tobacco use and 2015-04-29 2015-04-29 Never used Universit y of exposure 00:00:00 00:00:00 [facility] Tobacco Comment 2015-04-29 2015-04-29 pt states she Univer sity of 00:00:00 00:00:00 smokes 4-5 [facility] cig/day [place] Sex Ass[birth year] Universit y of 00:00:00 00:00:00 [facility] [place] [facility] Smoking Status Start Date Stop Date Source Current every day smoker 2015-04-29 00:00:00 Uni versity of [facility] [place] [facility] Medications Ordered Filled Start Stop Current Ordering Indication Dosage Frequency Signature Comments Components Source Medication Medication Date Date Medication? Clinician (SIG) Name Name LORazepam 2020-04 No 1mg 1 mg, Univer s (ATIVAN) 0-25 10-24 Oral, ity of tablet 1 mg 00:30: 23:30 [place]CE[place] 1 [place] dose, On [facility] 02/12/21 at 1930, PIPER ketorolac 2020-04 No 30mg 30 mg, Unive rs (TORADOL) 0-25 10-24 Intramuscu ity of injection 00:30: 23:30 lar, ONCE, [place] 30 mg 00 :00 1 dose, On [facility] 02/12/21 at 1930, PIPER
Fa culty member approving Restricted medication : MIRNA WARE chlorhexidi 2020-04 Yes [id number] 15mL Swish and Univers ne 0.12 % 0-24 spit out ity of mouthwash 00:00: 15 mL 2 [place] 00 (two) Medical times Branch daily. methylPREDN 2020-04 Yes [id number] Take by Univers ISolone 0-24 mouth ity [...] Indication s: acute pain ondansetron 2020-04 Yes [id number] 4mg Take 1 Univers 4 mg 0-24 tablet by ity of disintegrat 00:00: mouth [place] ing tablet 00 every 8 Medica l (eight) Branch hours as needed for Nausea and Vomiting (N/V). chlorhexidi 2020-04 Yes [id number] 15mL Swish and Univers ne 0.12 % 0-24 spit out ity of mouthwash 00:00: 15 mL 2 [place] 00 (two) Medical times Branch daily. methylPREDN 2020-04 Yes [id number] Take by Univers ISolone 0-24 mouth ity [...] Indication s: acute pain ondansetron 2020-04 Yes [id number] 4mg Take 1 Univers 4 mg 0-24 tablet by ity of disintegrat 00:00: mouth [place] ing tablet 00 every 8 Medica l (eight) Branch hours as needed for Nausea and Vomiting (N/V). amoxicillin 2020-04 Yes [id number] 500mg Take 1 Univers 500 mg 0-24 capsule by ity of capsule 00:00: mouth 3 00 (three) Medical times Branch daily. ibuprofen 2020-04 Yes [id number] 800mg Take 1 U nivers 800 mg 0-24 tablet by ity of tablet 00:00: mouth [place] 00 every 8 Medical (eight) Branch hours as needed for Pain (scale 4-6). clindamycin 2020-04 No [id number] 300mg Take 2 Univers 150 mg 0-24 02-20 capsules ity of capsule 00:00: 04:59 by mouth 4 [place] as 00 :00 (four) Medical times Branch daily for 7 days. clindamycin 2020-04 No [id number] 300mg Take 2 Univers 150 mg 0-24 02-20 capsules ity of capsule 00:00: 04:59 by mouth 4 [place] 00 :00 (four) Medical times Branch daily for 7 days. ciprofloxac Yes [id number] 250mg Take 1 Univers in HCl 250 4-23 tablet by ity of mg tablet 00:00: mouth 2 (two) Medical times Branch daily. ciprofloxac Yes [id number] 250mg Take 1 Univers in HCl 250 [...] mouth 2 (two) Medical times Branch daily. Vital Signs Vital Name Observation Time Observation Value Comments Source Systolic blood 2021-02-13 00:00:00 134 mm[Hg] Univer sity [facility] Diastolic blood 2021-02-13 00:00:00 87 mm[facility]Hg] [facility] 2021-02-13 00:00:00 63 /min [facility] Respiratory rate 2021-02-13 00:00:00 18 /min Univ ersity of [place] [facility] Oxygen saturation in 2021-02-13 00:00:00 97 /min University of Arterial blood by [facility] fahad Pulse oximetry Branch Body temperature 2021-02-12 23:17:00 36.5 Blanquita Univ ersity of [place] [facility] Body height 2021-02-12 23:17:00 160 cm Universi ty of [place] [facility] [place] Body weight 2021-02-12 23:17:00 68.04 kg Universi ty of [place] [facility] BMI 2021-02-12 23:17:00 26.57 kg/m2 Universi ty of [place] [facility] Systolic blood 2021-02-12 07:45:00 128 mm[Hg] Univer sity of pressure [facility] [place] [facility] Diastolic blood 2021-02-12 07:45:00 90 mm[Hg] Unive rsity of pressure [place] [facility] [place] Heart rate 2021-02-12 07:45:00 68 /min Universi ty of [place] [facility] Oxygen saturation in 2021-02-12 07:45:00 98 /min University of Arterial blood by [facility] Pulse oximetry Branch Body temperature 2021-02-12 07:02:00 36.89 Blanquita [facility] ersity of [facility] [place] [facility] Respiratory rate 2021-02-12 07:02:00 18 /min Univ ersity of [place] [facility] Body height 2021-02-12 07:02:00 160 cm Universi ty of [place] [facility] Body weight 2021-02-12 07:02:00 68.04 kg Universi ty of [place] [facility] BMI 2021-02-12 07:02:00 26.57 kg/m2 Universi ty of [facility] Branch Procedures Procedure Date / Time Performed Performing Clinician Sour e CONSENT/REFUSAL FOR 2021-02-12 06:52:01 Doctor Unassigned, No Un [facility] DIAGNOSIS AND Name Medical Branch TREATMENT Encounters Start End Encounter Admission Attending Care Care Encounter Source Date/Time Date/Time Type Type Clinicians Facility Department ID 2021-02-12 2021-02-12 Emergency X CHARLENE WARE ERT [id number] Univers 18:17:00 19:18:00 MIRNA gage [facility] 2021-02-12 2021-02-12 Emergency Cristina IDTARAH [id number] Univers 18:17:00 19:18:00 Mirna Smith [id number] ity [facility] [id number] [facility] [id number] [address] 2021-02-12 2021-02-12 Emergency Crespo, [facility] [id number] Univers 01:58:00 02:49:00 Alejo Smith [id number] i ty [facility] [id number] [facility] [id number] [address] 2021-02-12 2021-02-12 Emergency X [facility] ERT [id number] Univers 01:52:00 01:52[facility] 2020-08-12 2020-08-12 Emergency X [facility] ERT [id number] Univers 16:50:00 16:50:00 [facility] Results This patient has no known results.
--- NOTE | 2023-03-06 16:13 | ER ---
Nurse's Notes [facility] Name: Abida Casey Age: 32 yrs Sex: Female : 1990 Arrival Date: 03/06/2023 Time: 15:59 Bed IW1 Private MD: Diagnosis: Other specified disorders of teeth and supporting structures Presentation: 03/06 16:07 Chief complaint: Patient states: "2 days ago, my back left wisdom tooth started hurting mb9 and it started to swell up. I don't have insurance, i just need some relief right now". Coronavirus screen: At this time, the client does not indicate any symptoms associated with coronavirus-19. Ebola Screen: No symptoms or risks identified at this time. Initial Sepsis Screen: Does the patient meet any 2 criteria? No. Patient's initial sepsis screen is negative. Does the patient have a suspected source of infection? No. Patient's initial sepsis screen is negative. Risk Assessment: Do you want to hurt yourself or someone else? Patient reports no desire to harm self or others. Onset of symptoms was March 06, 2023. 16:07 Method Of Arrival: Ambulatory mb9 16:07 Acuity: JOELLE 4 mb9 Triage Assessment: 16:09 General: Appears in no apparent distress. Behavior is calm, cooperative. Pain: mb9 Complains of pain in wisdom tooth Pain radiates to left ear Pain at worst was 10 out of 10 on a pain scale. Quality of pain is described as throbbing, Pain began 2-3 days ago. Is continuous. EENT: Poor dentition noted. EENT: Reports pain in mouth. Neuro: Guerin Agitation-Sedation Scale (RASS): 0 - Alert and Calm Level of Consciousness is awake, alert, obeys commands, Oriented to person, place, time, situation, Appropriate for age. Cardiovascular: Patient's skin is warm and dry. Respiratory: Airway is patent Respiratory effort is even, unlabored, Respiratory pattern is regular, symmetrical. GI: No signs and/or symptoms were reported involving the gastrointestinal system. : No signs and/or symptoms were reported regarding the genitourinary system. Derm: Skin is pink, warm \\T\\ dry. Musculoskeletal: Range of motion: intact in all extremities. 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 - Social history:: Smoking status: Reported history of juuling and/or vaping. Screenin:10 [facility] ED Fall Risk Assessment (Adult) History of falling in the last 3 months, mb9 including since admission No falls in past 3 months (0 pts) Confusion or Disorientation No (0 pts) Intoxicated or Sedated No (0 pts) Impaired Gait No (0 pts) Mobility Assist Device Used No (0 pt) Altered Elimination No (0 pt) Score/Fall Risk Level 0 - 2 = Low Risk Oriented to surroundings, Maintained a safe environment, Educated pt \\T\\ family on fall prevention, incl call for assistance when getting out of bed. Abuse screen: Denies threats or abuse. Nutritional screening: No deficits noted. Tuberculosis screening: No symptoms or risk factors identified. Assessment: 16:10 Reassessment: see triage assessment. mb9 Vital Signs: 16:07 BP 146 / 90; Pulse 80; Resp 16; Temp 98.4; Pulse Ox 100% ; Weight 56.7 kg; Height 5 ft. mb9 3 in. ; Pain 10/10; 16:07 Body Mass Index 22.14 (56.70 kg, 160.02 cm) mb9 16:07 Pain Scale: Adult mb9 ED Course: 16:02 Patient arrived in ED. im 16:07 Amina Bonilla FNP-C [facility] kb 16:07 Case Esparza MD is Attending Physician. kb 16:07 Arm band placed on. mb9 16:09 Triage completed. mb9 16:10 Call light in reach. Client placed on continuous cardiac and pulse oximetry monitoring. mb9 NIBP monitoring applied. 16:11 Flakita Villalba RN is Primary Nurse. mb9 16:11 No provider procedures requiring assistance completed. Patient did not have IV access mb9 during this emergency room visit. Administered Medications: 16:17 Drug: Amoxicillin-Clavulanate PO 875 mg PO once Route: PO; mb9 16:17 Follow up: Response: No adverse reaction mb9 16:17 Drug: Ketorolac IM 30 mg IM once Route: IM; Site: left gluteus; mb9 16:17 Follow up: Response: No adverse reaction mb9 Medication: 16:11 VIS not applicable for this client. mb9 Outcome: 16:12 Discharge ordered by . kb 16:17 Discharged to home ambulatory, mb9 16:17 Condition: stable 16:17 Discharge instructions given to patient, Instructed on discharge instructions, follow up and referral plans. Demonstrated understanding of instructions, follow-up care, medications, Prescriptions given X 1, 16:18 Patient left the ED. mb9 Signatures: Amina Bonilla FNP-C FNP-Ckb Breneman, Mary Beth RN RN mb9 Gaby Banks
--- NOTE | 2023-03-06 16:13 | EDPHYS ---
Physician Documentation [facility] Name: Abida Casey Age: 32 yrs Sex: Female : 1990 Arrival Date: 03/06/2023 Time: 15:59 Bed IW1 Private MD: ED Physician Case Esparza HPI: 03/06 17:29 This 32 yrs old Female presents to ER via Ambulatory with complaints of Toothache. kb 17:29 Patient is a 32-year-old female who presents for pain to left lower teeth that started kb 2 days ago. Denies fever.. 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 - Social history:: Smoking status: Reported history of juuling and/or vaping. ROS: 17:26 Constitutional: Negative for fever, chills, and weight loss, kb 17:26 ENT: Positive for dental pain, 17:26 All other systems are negative, Exam: 17:26 Constitutional: This is a well developed, well nourished patient who is awake, alert, kb and in no acute distress. Head/Face: Normocephalic, atraumatic. Cardiovascular: Regular rate Respiratory: Respirations even and unlabored. No increased work of breathing. Talking in full sentences Skin: Warm, dry with normal turgor. Normal color. MS/ Extremity: Pulses equal, no cyanosis. Neurovascular intact. Full, normal range of motion. Neuro: Awake and alert, GCS 15, oriented to person, place, time, and situation. Moves all extremities. Normal gait. 17:26 ENT: Dental exam: dental caries, that is severe, gum swelling, that is mild, pain, that is moderate, Vital Signs: 16:07 BP 146 / 90; Pulse 80; Resp 16; Temp 98.4; Pulse Ox 100% ; Weight 56.7 kg; Height 5 ft. mb9 3 in. ; Pain 10/10; 16:07 Body Mass Index 22.14 (56.70 kg, 160.02 cm) mb9 16:07 Pain Scale: Adult mb9 MDM: 16:07 Patient medically screened. kb 17:28 Differential diagnosis: dental caries, gingivitis, dental abscess, pericoronitis. Data kb reviewed: vital signs, nurses notes. Counseling: I had a detailed discussion with the patient and/or guardian regarding the historical points, exam findings, and any diagnostic results supporting the discharge/admit diagnosis, the need for outpatient follow up, a dentist, to return to the emergency department if symptoms worsen or persist or if there are any questions or concerns that arise at home. Administered Medications: 16:17 Drug: Amoxicillin-Clavulanate PO 875 mg PO once Route: PO; mb9 16:17 Follow up: Response: No adverse reaction mb9 16:17 Drug: Ketorolac IM 30 mg IM once Route: IM; Site: left gluteus; mb9 16:17 Follow up: Response: No adverse reaction mb9 Disposition Summary: 03/06/23 16:12 Discharge Ordered Notes: Location: Home kb Condition: Stable kb Diagnosis - Other specified disorders of teeth and supporting structures kb Followup: kb - With: Emergency Department - When: As needed - Reason: Worsening of condition Followup: kb - With: Private Physician - When: 2 - 3 days - Reason: Recheck today's complaints, Continuance of care, Re-evaluation by your physician Discharge Instructions: - Discharge Summary Sheet kb - Dental Pain, [id number] kb - Dental Abscess, [id number] kb - Dental Caries, Adult, [id number] kb Forms: - Medication Reconciliation Form kb - Thank You Letter kb - Antibiotic Education kb - Prescription Opioid Use kb - Patient Portal Instructions kb - Leadership Thank You Letter kb Prescriptions: - Augmentin 875-125 mg Oral Tablet - take 1 tablet ORAL route every 12 hours for 10 days; 20 tablet; Refills: 0, kb Product Selection Permitted Addendum: 03/08/2023 20:09 I was immediately available for consultation during this patient's visit. I did not e c2 personally see the patient or guide the patient's care.. Signatures: Amina Bonilla, OVIC DEBORA-Flakita Lott RN RN mb9 Case Esparza MD MD ec2
[2023-03-06] MEDS ORDERED: AMOX/K CLAV 875 MG TAB ONE (16:26)
[2023-03-06 17:31] VITALS: BP 146/90; TEMP 98.4; O2SAT 100
== END 2023-03-06 16:18 | disposition home or self-care (01) ==
LOC: ER 15:59
DX: K08.89 Other specified disorders of teeth and supporting structures (principal)
CPT/HCPCS: 96372; 99284